=== PATIENT | female | born 1970 | race Caucasian/White ===

== ENCOUNTER 2025-05-20 00:25 | Emergency (ER) | payer OTHER, SELFPAY ==
--- OUTSIDE RECORDS SUMMARY | 2025-05-19 10:15 | XMS_ITS | Encounter Summary ---
Author Organization [facility] Address [address] [place] [address] Care Team Providers Care Account Associate Name Role Phone Nazario Katz DO Primary Care Provider [phone] Nazario Katz DO Unavailable [phone] Reason for Visit * ReasonCommentsAbdominal Pain Encounter Details DateTypeDepartmentCare Team (Latest Contact Info)Jnplnstphvq00/03/2025 10:15 AM ESTOffice Visit [facility] [place] [facility] [address] [place] [phone] Nazario Katz, DO [address] [place] [address] Constipation, unspecified constipation type (Primary Dx) Social History Tobacco UseTypesPacks/DayYears UsedDateSmoking Tobacco: FormerCigarettesQuit: 06/17/2014Smokeless Tobacco: NeverAlcohol UseStandard Drinks/WeekCommentsYes1 (1 standard drink = 0.6 oz pure alcohol)caffeine 1-2 cups/day; coffee/tea Humiliation, Afraid, Rape, and Kick questionnaireAnswerDate RecordedWithin the last year, have you been afraid of your partner or ex-partner?No07/15/2023Within the last year, have you been humiliated or emotionally abused in other ways by your partner or ex-partner?No07/15/2023Within the last year, have you been kicked, hit, slapped, or otherwise physically hurt by your partner or ex-partner?No07/15/2023Within the last year, have you been raped or forced to have any kind of sexual activity by your partner or ex-partner?No07/15/2023 Social Connection and Isolation PanelAnswerDate RecordedIn a typical week, how many times do you talk on the phone with family, friends, or neighbors?More than three times a week07/15/2023How often do you get together with friends or relatives?Once a week07/15/2023How often do you attend anglican or protestant services?1 to 4 times per year07/15/2023o you belong to any clubs or organizations such as anglican groups, unions, fraternal or athletic groups, or school groups?Yes07/15/2023How often do you attend meetings of the clubs or organizations you belong to?1 to 4 times per year07/15/2023re you , , , , never , or living with a partner? 07/15/2023UDIT-CAnswerDate RecordedQ1: How often do you have a drink containing alcohol?Monthly or less10/06/2024Q2: How many drinks containing alcohol do you have on a typical day when you are drinking?1 or Q3: How often do you have six or more drinks on one occasion?Never10/06/2024Overall Financial Resource Strain (CARDIA)AnswerDate RecordedHow hard is it for you to pay for the very basics like food, housing, medical care, and heating?Not hard at all 07/15/2023HQ-2AnswerDate RecordedPatient Health Questionnaire-2 Score0 05/19/2025[facility] [place] of Occupational Health - Occupational Stress QuestionnaireAnswerDate RecordedDo you feel stress - tense, restless, nervous, or anxious, or unable to sleep at night because yourmind is troubled all the time - these days?Only a ehjjbg2707/15/2023Exercise Vital SignAnswerDate Recorded On average, how many days per week do you engage in moderate to strenuous exercise (like a brisk walk)?1 day07/15/2023On average, how many minutes do you engage in exercise at this level?30 min07/15/2023Hunger Vital SignAnswerDate RecordedWithin the past 12 months, you worried that your food would run out before you got the money to buymore.Never true07/15/2023Within the past 12 months, the food you bought just didn't last and you didn't have money to get more.Never true07/15/2023RAPARE - TransportationAnswerDate RecordedIn the past 12 months, has lack of transportation kept you from medical appointments or from getting medications?No07/15/2023In the past 12 months, has lack of transportation kept you from meetings, work, or from getting things needed for daily living?No07/15/2023Housing Stability Vital SignAnswerDate RecordedIn the last 12 months, was there a time when you were not able to pay the mortgage or rent on time?No07/15/2023In the last 12 months, how many places have you lived?1 07/15/2023In the last 12 months, was there a time when you did not have a steady place to sleep or slept in [facility] (including now)?No07/15/2023Comments NoSex and Gender InformationValueDate RecordedSex Assigned at BirthNot on file Legal PknOqqfou55/15/2023 6:58 PM EDTGender IdentityNot on fileSexual OrientationNot on filedocumented as of this encounter Last Filed Vital Signs Vital SignReadingTime TakenCommentsBlood Dgeyxmev707/7005/19/2025 10:53 AM EST Godod120805/19/2025 10:53 AM YTQVmfcdyzgzrg99.6 ??C (97.9 ??F)05/19/2025 10:53 AM ESTRespiratory Rate--Oxygen Cjquahomuy99%05/19/2025 10:53 AM ESTInhaled Oxygen Concentration--Dtdfmh343 kg (243 lb 3.2 oz)05/19/2025 10:53 AM PLUScvnyo934.6 cm (5' 4 )05/19/2025 10:53 AM ESTBody Mass Index41.7505/19/2025 10:53 AM EST documented in this encounter Functional Status * Over the past 2 weeks, how often have you been bothered by any of the following problems?QuestionAnswerDate of AssessmentAuthorLittle interest or pleasure in doing thingsNot at all05/19/2025 10:53 AM Lorie Gregorio MA Feeling down, depressed, or hopelessNot at all05/19/2025 10:53 AM Lorie Gregorio MAPatient Health Questionnaire-2 Izfdg55907/20/2024 10:53 AM Lorie Gregorio MA documented as of this encounter Plan of Treatment DateTypeDepartmentCare Team (Latest Contact Info)Fudltmckkic71/24/2026 11:30 AM EDTOffice Visit [facility] [place] [facility] [address] [place] [phone] Anjel Patterson DO [address] [place] [address] documented as of this encounter Visit Diagnoses Diagnosis Constipation, unspecified constipation type- Primary documented in this encounter Care Teams Team MemberRelationshipSpecialtyStart DateEnd Date Nazario Katz DO [address] [place] [address] PCP - GeneralFamily Medicine10/23/22 Nazario Katz DO [address] [place] [address] PCP - Medical [place] [employer]06/17/1611documented as of this encounter
[2025-05-20 00:30] VITALS: BP 122/74; PULSE 78; TEMP 36.7; O2SAT 96; BMI 39.5
--- NOTE | 2025-05-20 00:56 | XR_ITS ---
The [address] [address] Patient Name: BASIL SANCHEZ MRN: [id number] date: 1970 Sex: F Assigned Patient Location: ER Current Patient Location: Accession/Order Number: [id number] Exam Date: 05/20/2025 01:05 Report Date: 05/20/2025 08:33 At the request of: KEEGAN TORRES MD Procedure: XR acute abdomen series ACUTE ABDOMEN SERIES WITH PA CHEST: CLINICAL HISTORY: upper abd pain COMPARISON: None The chest film shows shallow inspiration with possible minimal basilar atelectasis. There is no pneumothorax or sizable pleural effusion. The heart is normal size. Supine and upright views of the abdomen and pelvis demonstrate air and stool within the colon with mild gaseous distention, greatest at the ascending segment. There is some small bowel air at the left abdomen, without disproportionate distention. There is no free air or significant air-fluid levels. No soft tissue masses or abnormal calcifications are seen. There is subtle levoscoliotic curvature and endplate spurring. There are clips from prior cholecystectomy. XR/XR acute abdomen series IMPRESSION: NONSPECIFIC BOWEL GAS PATTERN WITH COLONIC DISTENTION Impression dictated by: Rohini Mccrary M.D. 05/20/2025 8:33 AM Dictation Location: [place] [address] Electronically authenticated by: [id number] Y Date: 05/20/2025 08:33
--- NOTE | 2025-05-20 01:04 | ED_ITS ---
HPI - Abdominal Pain General Chief Complaint: Abdominal Pain Stated Complaint: Abdominal pain, constipation, cold sweats Time Seen by Provider: 05/20/25 00:41 Source: patient Mode of arrival: walk-in History of Present Illness HPI narrative: This 54-year-old female presents for evaluation of upper abdominal pain and constipation. She states she has not had a bowel movement for the past 3 to 4 days. She has not passed any gas since this morning. She was seen by her family physician and was given a prescription for lactulose. She went home and took some lactulose and drink water but she states that caused more pain in her upper abdomen. She is nauseated but has not vomited. She has not had a fever. She is not having any rectal pain or pressure or lower abdominal pain or pressure. She states her pain and distention is in her upper abdomen causing her to not be able to take a deep breath. She has had her gallbladder removed in the past. She is currently weaning herself off of Adipex but is not on any GLP medications. She does not have a history of diabetes. She denies any urinary symptoms or back pain. 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 Related Data Allergies Allergy/AdvReac Type Severity Reaction Status Date / Time No Known Drug Allergies Allergy Verified 05/20/25 00:30 Review of Systems ROS Status of ROS 10 or more systems reviewed and unremark able except as noted in history and below PFSH PFSH Social History Little interest or pleasure in doing things: not at all Feeling down, depressed, or hopeless: not at all Exam Narrative Exam Narrative: Vital signs and Nursing Notes reviewed: Patient is afebrile with normal pulse, normal blood pressure, she is not hypoxic with pulse ox 96% on room air General: Awake, alert, oriented, nontoxic but uncomfortable appearing overweight female, she is rubbing her upper abdomen, no respiratory distress-appears unable to get comfortable on the bed and then pacing around the room HEENT: Normocephalic atraumatic, mucous membranes are moist and pink, eyes are clear, normal conjunctiva, vision is grossly intact, posterior pharynx is normal in appearance. Neck: Supple, no meningeal signs, no anterior or posterior cervical lymphadenopathy Chest: Lungs are clear to auscultation with good air entry, there is no wheezing rhonchi or rales appreciated no accessory muscle use, patient is speaking in c omplete sentences-no chest wall tenderness to palpation CVS: Regular rate and rhythm S1-S2, no murmurs rubs or gallops, pulses are brisk and equal bilaterally ABD: Obese, soft, epigastric, right upper quadrant and left upper quadrant abdominal tenderness, no voluntary guarding appreciated, there is no lower abdominal tenderness Extremities: Moving all extremities, no lower extremity tenderness or swelling noted, negative Homans' sign, pulses are brisk and equal bilaterally Skin: Normal in appearance without rash,pallor, petechiae or purpura Neuro: No focal deficits Constitutional Vital Signs, click to edit/add: Last Vital Signs Temp 98.1 F 05/20/25 00:30 Pulse 98 H 05/20/25 04:59 Resp 20 05/20/25 04:59 BP 126/84 05/20/25 04:59 Pulse Ox 97 05/20/25 04:59 O2 Del Method Room Air 05/20/25 04:59 Course Vital Signs Vital signs: Vital Signs Temperature 98.1 F 05/20/25 00:30 Pulse Rate 78 05/20/25 00:30 Respiratory Rate 20 05/20/25 00:30 Blood Pressure 122/74 05/20/25 00:30 Pulse Oximetry 96 05/20/25 00:30 Oxygen Delivery Method Room Air 05/20/25 00:30 Temperature 98.1 F 05/20/25 00:30 Pulse Rate 98 H 05/20/25 04:59 Respiratory Rate 20 05/20/25 04:59 Blood Pressure 126/84 05/20/25 04:59 Pulse Oximetry 97 05/20/25 04:59 Oxygen Delivery Method Room Air 05/20/25 04:59 MDM - Abdominal Pain MDM Narrative Medical decision making narrative: This 54-year-old female presents for evaluation of upper abdominal pain with mild nausea and constipation for the past several days. She was seen by her family physician earlier and given lactulose which she took followed by some water and had increased pain. She is not able to get comfortable. She has not had any flatus since earlier in the day. She explained to me that due to the distention in her upper abdomen she could not take a deep breath prompting an EKG and cardiac workup as well as evaluation for her constipation and abdominal pain. EKG is a sinus rhythm at 93 bpm with a normal axis. An IV was placed and she was initially medicated with IV fluids, Zofran and Toradol. On reevaluation she was still pacing about the room and states she was too uncomfortable to lie down. She was then given 1 mg of IV Dilaudid. Routine labs are reviewed. She has an elevated white count at 15 with a stable hemoglobin. Electrolytes are normal with a potassium of 3.4. Liver function test and lipase are normal. Her troponin is normal. Her D-dimer was markedly elevated at 9.3. CT scan of the chest abdomen pelvis was ordered then to rule out pulmonary embolism/aortic emergency, bowel obstruction or other etiologies causing her constipation and abdominal pain with elevated D-dimer. She was reevaluated several times after the CT scan and remains comfortable. CT scan shows marked wall thickening within the sigmoid colon with an area partially obscured due to the wall thickening which may be related to a focal colitis or protects diverticulitis however mass cannot be excluded. Colonoscopy was recommended for further evaluation on a nonemergent basis if not characterized previously. Distended colon with abrupt caliber change within the sigmoid colon consistent with at least partial or early obstruction. CT scan of the chest showed a normal caliber thoracic aorta with no aneurysmal dilatation no dissection with central pulmonary arteries normal in caliber with no pulmonary embolism appreciated. Lungs were clear with no pneumothorax pleural or pericardial effusion. Abdominal aorta was normal in caliber. The celiac superior and inferior mesenteric arteries were patent with no hemodynamically significant stenosis or dissection identified within the aorta. Main renal arteries are patent. Gallbladder surgically absent. Spleen was normal in size and adrenal glands and pancreas were normal. There was no hydronephrosis and no ureteral calculus. Results of these findings were discussed with the patient and her . We discussed options for transfer as we do not have general surgery available at this facility at this time. She was agreeable to [facility]. We contacted the transfer center who discussed the case with general surgery who suggested that the patient be transferred to the emergency department. The case was discussed with the emergency department physician Dr. miramontes and she is accepted for transfer. She was medicated with IV Levaquin and Flagyl for the concern for diverticulitis on the CT scan findings. An NG tube was discussed but since her obstruction is sigmoid colon in nature, this was withheld. Lab Data Attestation: I reviewed the patient's lab results. Labs: Lab Results 05/20/25 Range/Units 01:00 WBC 15.9 H (4.0-11.0) 10^3/uL RBC 5.09 (4.20-5.40) 10^6/uL Hgb 14.5 (12.0-16.0) g/dL Hct 43.0 (36.0-48.0) % MCV 84.5 (81.0-99.0) fL MCH 28.5 (26.7-34.0) pg MCHC 33.7 (29.9-35.2) g/dL RDW 12.6 (11.0-15.0) % Plt Count 363 (150-450) 10^3/uL MPV 9.4 L (9.5-13.5) fL Neut % (Auto) 80.4 H (43.0-75.0) % Lymph % (Auto) 13.4 L (20.5-60.0) % Ralls % (Auto) 5.2 (1.7-12.0) % Eos % (Auto) 0.4 L (0.9-7.0) % Baso % (Auto) 0.2 (0.2-2.0) % Neut # (Auto) 12.8 H (1.4-6.5) 10^3/uL Lymph # (Auto) 2.1 (1.2-3.8) 10^3/uL Ralls # (Auto) 0.8 (0.3-0.8) 10^3/uL Eos # (Auto) 0.1 (0.0-0.7) 10^3/uL Baso # (Auto) 0.0 (0.0-0.1) 10^3/uL Abs Immat Gran (auto) 0.06 H (0.00-0.03) 10^3/uL Imm/Tot Granulo (auto) 0.4 (0.0-0.5) % D-Dimer 9.30 H* (<=0.59) mg/L FEU Sodium 138 (136-145) mmol/L Potassium 3.4 L (3.5-5.1) mmol/L Chloride 103 (98-107) mmol/L Carbon Dioxide 26.4 (21.0-32.0) mmol/L Anion Gap 12.0 BUN 9.0 (7.0-18.0) mg/dL Creatinine 0.89 (0.55-1.02) mg/dL Est GFR ( Amer) >60 (>=60 mL/min/1.73m^2) Est GFR (Non-Af Amer) >60 (>=60 mL/min/1.73m^2) BUN/Creatinine Ratio 10.1 Glucose 145 H (74-106) mg/dL Lactate 0.7 (0.4-2.0) mmol/L Calcium 9.5 (8.5-10.1) mg/dL Total Bilirubin 0.4 (0.2-1.0) mg/dL AST 17 (15-37) U/L ALT 28 (14-59) U/L Alkaline Phosphatase 93 (46-116) U/L Troponin I High Sens 5.3 (4.0-51.3) pg/mL Total Protein 7.6 (6.4-8.2) g/dL Albumin 3.3 L (3.4-5.0) g/dL Globulin 4.3 g/dL Albumin/Globulin Ratio 0.8 Lipase 32.0 (16.0-77.0) U/L ECG Data Attestation: I personally reviewed and interpreted this ECG as follows: (Sinus rhythm at 93 bpm with occasional PVCs, normal axis, nonspecific ST changes, possible left atrial enlargement, no acute ST segment elevation or T wave inversion) Discharge Plan Discharge Chief Complaint: Abdominal Pain Clinical Impression: Abdominal pain, Colonic obstruction Patient Disposition: [facility] Time of Disposition Decision: 04:49 Discharge Location: [facility] Mode of Transportation: EMS
[2025-05-20 01:08] LABS: Hematocrit 43.0 % (36.0-48.0); Hemoglobin 14.5 g/dL (12.0-16.0); Immature Granulocytes Abs Auto 0.06 10^3/uL (0.00-0.03); Immature Granulocytes Pct Auto 0.4 % (0.0-0.5); Lymphocytes Absolute Auto 2.1 10^3/uL (1.2-3.8); Mean Corpuscular HGB Conc 33.7 g/dL (29.9-35.2); Mean Corpuscular Hemoglobin 28.5 pg (26.7-34.0); Mean Corpuscular Volume 84.5 fL (81.0-99.0); Platelet Count 363 10^3/uL (150-450); Red Blood Count 5.09 10^6/uL (4.20-5.40); White Blood Count 15.9 10^3/uL (4.0-11.0)
[2025-05-20] MEDS: 0.9 % SODIUM CHLORIDE 1,000 ML 1000 ML IV (01:14)
[2025-05-20] MEDS: KETOROLAC TROMETHAMINE 30 MG/ML VIAL IVP (01:14)
[2025-05-20 01:25] LABS: Alanine Aminotransferase 28 U/L (14-59); Albumin Globulin Ratio 0.8; Albumin Level 3.3 g/dL (3.4-5.0); Alkaline Phosphatase 93 U/L (46-116); Anion Gap 12.0; Aspartate Amino Transferase 17 U/L (15-37); Blood Urea Nitrogen 9.0 mg/dL (7.0-18.0); Calcium 9.5 mg/dL (8.5-10.1); Carbon Dioxide 26.4 mmol/L (21.0-32.0); Chloride 103 mmol/L (98-107); Estimated GFR (African America >60 (>=60 mL/min/1.73m^2); Estimated GFR (Non-African Ame >60 (>=60 mL/min/1.73m^2); Globulin 4.3 g/dL; Glucose 145 mg/dL (74-106); Lipase 32.0 U/L (16.0-77.0); Potassium 3.4 mmol/L (3.5-5.1); Sodium 138 mmol/L (136-145); Total Protein 7.6 g/dL (6.4-8.2)
--- NOTE | 2025-05-20 01:40 | ECG_ITS ---
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
--- OUTSIDE RECORDS SUMMARY | 2025-05-20 01:41 | XMS_ITS | Clinical Summary ---
Author Organization [facility] [employer] s [employer] Address [id number] [place] [address] Care Team Providers Care Project Mgr Name Role Phone Unavailable Primary Care Provider Unavailabl e Social History Tobacco UseTypesPacks/DayYears UsedDateSmoking Tobacco: Never AssessedChildcare AnswerDate WxhofwsaLgvycyajfYphtxie63/12/2019EmploymentAnswerDate Recorded IbcgzxlqujTvjcriv65/12/2019CommentsUnknownSex and Gender Information ValueDate RecordedSex Assigned at BirthNot on fileLegal HwoSednwc48/06/2015 11:32 AM EDTGender IdentityNot on fileSexual OrientationNot on file Plan of Treatment Not on file Medical Devices Not on file
--- OUTSIDE RECORDS SUMMARY | 2025-05-20 01:41 | XMS_ITS | Clinical Summary ---
Author Organization [facility] Address [address] [place] [address] Care Team Providers Care Route Cdl Driver Name Role Phone Nazario Katz DO Primary Care Provider [phone] Nazario Katz DO Unavailable [phone] Allergies No known active allergies Medications MedicationSigDispense QuantityRefillsLast FilledStart DateEnd DateStatus cinnamon 500 MG capsule as directed OrallyActive ibuprofen 200 MG tablet every 8 (eight) hours.Active Magnesium 300 MG capsule 1,000 mg 1 (one) time each day at the same timeActive omega-3 (fish oil) 1000 MG capsule 1 capsule 1 (one) time each day at the same time.Active Turmeric 400 MG capsule 2 tabletsActive Misc Natural Products (YUMVS BEET ROOT-TART HUANG PO) Take by mouth.Active olmesartan-hydroCHLOROthiazide (BENIcar HCT) 40-12.5 MG tablet Indications:Essential hypertensionTAKE 1 TABLET BY MOUTH IN THE MORNING 30 tablet 4Active Emollient (COLLAGEN EX) Apply topically Collagen peptidesActive phentermine (Adipex-P) 37.5 MG tablet Indications:Weight gainTake 1 tablet (37.5 mg) by mouth in the morning. Take before meals. 90 tablet 5Active rosuvastatin (Crestor) 20 MG tablet Indications:Mixed hyperlipidemiaTake 1 tablet (20 mg) by mouth Daily 30 tablet 5055Active lactulose 20 gram/30 mL oral solution Indications:Constipation, unspecified constipation typeTake 30 mL (20 g) by mouth Daily for 14 days 420 mL 1125Active amoxicillin-clavulanate (Augmentin) 875-125 MG tablet Indications:Abdominal pain, unspecified abdominal locationTake 1 tablet (875 mg) by mouth in the morning and 1 tablet (875 mg) in the evening. Take after meals. Do all this for 7 days. 14 tablet Expired Active Problems ProblemNoted DateDiagnosed DateEssential jfkjpasbqldq95/04/2023Impaired fasting euailia3503/20/2023Mixed uorltlntqczubi58/04/2023Obesity, Class III, BMI 40-49.9 (morbid obesity)03/20/2023 Resolved Problems ProblemNoted DateDiagnosed DateResolved DateAKI (acute kidney injury)08/20/2023 12/15/2024Elevated liver function tests/06/2024Gallstone pancreatitis ([facility]xillary fat pad/ Oavkvursigcfaf07 Encounters DateTypeDepartmentCare YbnrCszuywyglwr95/03/2025 10:15 AM ESTOffice Visit [facility] [address] [place] [phone] Nazario Katz DO Constipation, unspecified constipation type (Primary Dx)05/19/2025amboo flowsheet [facility] [address] [place] [phone] Nazario Katz, 05/19/20254839Dmoyvm61/02/2025Telephone [facility] [address] [place] [phone] Nazario Katz, 04/14/2025Refill [facility] [address] [place] [phone] Nazario Katz, Abdominal pain, unspecified abdominal location (Primary Dx)from Last 3 Months Immunizations ImmunizationAdministration DatesNext DueInfluenza, injectable, quadrivalent, preservative free03/29/2020Tdap08/29/2011 Family History Medical HistoryRelationNameCommentsArrhythmiaFatherJames B CarothersCancerFather Hugo Bush CarothersHeart diseaseFatherJames B CarothersHypertensionFatherJames B CarothersProstate cancerFatherJames B CarothersHeart attackMaternal Grandmother Breast cancerMotherRae Dania CarothersCOPDMotherRae Dania CarothersDiverticulitis MotherRae Dania CarothersHypertensionMotherRae Dania CarothersAlzheimer's disease Paternal GrandmotherRelationNameStatusCommentsFatherJames B CarothersDeceased Maternal GrandmotherMotherRae Dania CarothersDeceasedPaternal GrandmotherSister1 LkcklEby3Ccqho Social History Tobacco UseTypesPacks/DayYears UsedDateSmoking Tobacco: FormerCigarettesQuit: 06/17/2014Smokeless Tobacco: Never Tobacco Cessation:Counseling Given: No Alcohol UseStandard Drinks/WeekCommentsYes1 (1 standard drink = 0.6 oz pure alcohol)caffeine 1-2 cups/day; coffee/teaHumiliation, Afraid, Rape, and Kick questionnaireAnswerDate RecordedWithin the last year, have you been afraid of your partner or ex-partner?No07/15/2023Within the last year, have you been humiliated or emotionally abused in other ways by your partner or ex-partner?No 07/15/2023Within the last year, have you been kicked, hit, slapped, or otherwise physically hurt by your partner or ex-partner?No07/15/2023Within the last year, have you been raped or forced to have any kind of sexual activity by your part ner or ex-partner?No07/15/2023Social Connection and Isolation PanelAnswerDate RecordedIn a typical week, how many times do you talk on the phone with family, friends, or neighbors?More than three times a week07/15/2023How often do you get together with friends or relatives?Once a week07/15/2023How often do you attend episcopalian or quaker services?1 to 4 times per year07/15/2023o you belong to any clubs or organizations such as episcopalian groups, unions, fraternal or athletic francois ups, or school groups?Yes07/15/2023How often do you attend [...] at all 07/15/2023HQ-2AnswerDate RecordedPatient Health Questionnaire-2 Score0 05/19/2025[facility] - Occupational Stress QuestionnaireAnswerDate RecordedDo you feel stress - tense, restless, nervous, or anxious, or unable to sleep at night because yourmind is troubled all the time - these days?Only a gzovia5107/15/2023Exercise Vital SignAnswerDate Recorded On average, how many [...] steady place to sleep or slept in ashelter (including now)?No07/15/2023Comments NoSex and Gender InformationValueDate RecordedSex Assigned at BirthNot on file Legal RyuRkfnvu60/15/2023 6:58 PM EDTGender IdentityNot on fileSexual OrientationNot on file Last Filed Vital Signs Vital SignReadingTime TakenCommentsBlood Ibzkoler445/7005/19/2025 10:53 AM EST Nkdav358405/19/2025 10:53 AM MWONqzikvkblyb73.6 ??C (97.9 ??F)05/19/2025 10:53 AM ESTRespiratory Rate--Oxygen Boopsfdcno84%05/19/2025 10:53 AM ESTInhaled Oxygen Concentration--Heqicd855 kg (243 lb 3.2 oz)05/19/2025 10:53 AM SEWOpekyq192.6 cm (5' 4 )05/19/2025 10:53 AM ESTBody Mass Index41.7505/19/2025 10:53 AM EST Plan of Treatment DateTypeDepartmentCare Team (Latest Contact Info)Nhlqdroivho98/24/2026 11:30 AM EDTOffice Visit [facility] [address] [place] [address] Anjel Patterson DO [address] [place] [address] Health MaintenanceDue DateLast DoneCommentsCT Lmdfzfccvizd1970Colonoscopy 1970FIT1970FOBT1970 7237Bofgrxbmnyeub1970Pap Smear1991 COVID-19 Vaccine ( season), 09/09/2020, 08/10/2020Influenza Vaccine (#1)Mammogram11/23/2025 11/23/2024, 06/28/2023, 05/28/2022, Additional history existsColorectal Cancer Wuezsdkle11/15/2028FIT-DNA, 11/24/2020, 11/24/2020ervical Cancer Ylyogtfpz86/22/2030HPV/Fjloox47, 04/12/2021neumococcal Vaccine: Pediatrics (0 to 5 Years) and At-Risk Patients (6 to 64 Years)Aged Out No longer eligible based on patient's age to complete this topic Procedures Procedure NamePriorityDate/TimeAssociated DiagnosisCommentsBI MAMMOGRAM SCREENING TOMOSYNTHESIS ATDURYIYJ26/09/2025 10:33 AM EDT IGP, APT HPV,RFX 16/18,06Pjqxpyr68/22/2025 12:00 AM EDT Encounter for Papanicolaou smear of cervix LAB COLOGUARD?? COLON CANCER ZALQINAkpbola08/15/2025 6:00 AM EDT Colon cancer screening from Last 3 Months or Most Recently Relevant to Health Maintenance Results * Bilateral screening mammogram with tomosynthesis (11/23/2024 10:33 AM EDT) Anatomical RegionLateralityModalityBreastBilateralMammographySpecimen (Source) Anatomical Location / LateralityCollection Method / VolumeCollection Time Received Time11/23/2024 10:33 AM EDT Impressions 11/23/2024 10:37 AM EDT No mammographic evidence of malignancy. Routine follow-up recommended in one year. ?? RESULT CODE: 2 ? Benign Findings(s) ? DENSITY CODE: 1 (<25% glandular) The breasts are almost entirely fatty. ? FOLLOW UP: 1YR ? THE FALSE-NEGATIVE RATE OF MAMMOGRAPHY IS APPROXIMATELY 10%. ? IMAGING OF A PALPABLE ABNORMALITY MUST BE BASED ON CLINICAL GROUNDS. ? PATIENT WAS ENTERED INTO A REMINDER SYSTEM WITH A TARGET DUE DATE FOR THE NEXT MAMMOGRAM. ? Impression dictated by: Ruben Booth M.D. ??11/23/2024 10:35 AM ? Dictation Location: DWS01 ? Dictated By: ?Ruben Booth DO ? 11/23/24 1033 ? Signed By: <Electronically signed by Ruben Booth, DO in OV> ? 11/23/24 1035 Narrative 11/23/2024 10:37 AM T [facility] ?[address] ?[place] [address] ?? [phone] ? Mammography Report ? Signed ? Patient: Widman,Lidia L ?MR#: [id number] ?? [id number] ? : 1970 ?Acct:[id number] ? Age/Sex: 54 / F ?Adm Date: 06/09/25 ? Loc: [place] ?Room: ?Type: DEP CLI ?? Attending Dr: Anjel Patterson DO ? Ordering Provider: Anjel Patterson,DO ? Date of Service: 11/23/24 ? Procedure(s): MM screening mammo BI w/CAD ?? Accession Number(s): ([id number]) MM/MM screening mammo BI w/CAD: SCREENING ? Copies to: Nazario Katz, DO ?? Anjel Patterson,DO ? BILATERAL ??Screening ??Full Field digital mammogram with 3-D imaging. ? Full field digital CC and MLO imaging performed. ??CAD utilized. ? COMPARISON: 06/27/2023 ? HISTORY: Annual screening ? BREAST COMPOSITION: The breast is almost entirely fatty. ? BREAST CALCIFICATIONS: Benign calcifications present. ? VASCULAR CALCIFICATIONS: None ? ARCHITECTURAL DISTORTION: None ? BREAST NODULE: None ? AXILLARY LYMPH NODES: Normal ? POSTSURGICAL CHANGES: None ? MM/MM screening mammo BI w/CAD ?? Procedure Note Radiology, Radiologist, - [facility]24[facility]20[facility] [address] [id number] Mammography Report Signed Patient: Lidia Acevedo LMR#: [id number] : 1970Acct:[id number] Age/Sex: 54 / FAdm Date: 11/23/24 Loc: [place] Room:Type: [facility] Attending Dr: Anjel Patterson DO Ordering Provider: Anjel Patterson DO Date of Service: 11/23/24 Procedure(s): MM screening mammo BI w/CAD Accession Number(s): ([id number]) MM/MM screening mammo BI w/CAD:SCREENING Copies to: Nazario Katz, DO Anjel Patterson DO BILATERAL Screening Full Field digital mammogram with 3-D imaging. Full field digital CC and MLO imaging performed. CAD utilized. COMPARISON: 06/27/2023 HISTORY: Annual screening BREAST COMPOSITION: The breast is almost entirely fatty. BREAST CALCIFICATIONS: Benign calcifications present. VASCULAR CALCIFICATIONS: None ARCHITECTURAL DISTORTION: None BREAST NODULE: None AXILLARY LYMPH NODES: Normal POSTSURGICAL CHANGES: None MM/MM screening mammo BI w/CAD IMPRESSION: No mammographic evidence of malignancy. Routine follow-up recommended inone year. RESULT CODE: 2 Benign Findings(s) DENSITY CODE: 1 (<25% glandular) The breasts are almost entirely fatty. FOLLOW UP: 1YR THE FALSE-NEGATIVE RATE OF MAMMOGRAPHY IS APPROXIMATELY 10%. IMAGING OF A PALPABLE ABNORMALITY MUST BE BASED ON CLINICAL GROUNDS. PATIENT WAS ENTERED INTO A REMINDER SYSTEM WITH A TARGET DUE DATE FOR THENEXT MAMMOGRAM. Impression dictated by: Ruben Booth M.D. 11/23/2024 10:35 AM Dictation Location: [facility] Dictated By: Ruben Booth DO 11/23/24 1033 Signed By: <Electronically signed by Ruben Booth DO in OV> 11/23/24 1035 Authorizing ProviderResult TypeResult StatusWillwalker Patterson [facility] BI PROCEDURES Edited Result - Final * IGP, APT HPV,RFX 16/18,45 (10/06/2024 12:00 AM EDT)ComponentValueRef RangeTest MethodAnalysis TimePerformed AtPathologist SignatureDiagnosis:CommentLABC[facility]P Comment:NEGATIVE FOR INTRAEPITHELIAL LESION OR MALIGNANCY.Specimen Adequacy: CommentLABCORPComment: Satisfactory for evaluation. ??Endocervical and/or squamous metaplastic cells (endocervical component) are present. Clinician Provided ICD10:CommentLABCORPComment:Z12.4Performed By:CommentLABC[facility] Comment:Edwin Sanz, Hogshead Stripper (ASCP)Cyto Comments.LABCORPNote:Comment[facility] Comment: The Pap smear is a screening test designed to aid in the detection of premalignant and malignant conditions of the uterine cervix. ??It is not a diagnostic procedure and should not be used as the sole means of detecting cervical cancer. ??Both false-positive and false-negative reports do occur. Test Methodology:CommentLABCORPComment: This liquid based ThinPrep(R) pap test was screened with the use of an image guided system. HPV AptimaNegativeNegativeLABCORPComment: This nucleic acid amplification test detects fourteen high-risk HPV types (16,18,31,33,35,39,45,51,52,56,58,59,66,68) without differentiation. Specimen (Source)Anatomical Location / LateralityCollection Method / Volume Collection TimeReceived HbunRpqf75/ Narrative [facility] - 10/09/2024 3:07 PM EDT Performed at: 01 - [address] ??[id number] Import Export Agent: Kirsty Sorto MD, Phone: ??[phone] Performed at: ??02 - [facility] ??[id number] Import Export Agent: Kirsty Sorto MD, Phone: ??[phone] Specimen Comment: No. of containers..01 ThinPrep Vial Authorizing ProviderResult TypeResult StatusWilliagerardo MonzonSumma Health Akron Campus BLOOD ORDERABLESFinal ResultPerforming OrganizationAddressCity/State/ZIP CodePhone Number [facility] * Cologuard?? colon cancer screening (09/29/2024 6:00 AM EDT)ComponentValueRef RangeTest MethodAnalysis TimePerformed AtPathologist SignatureNONINV COLON CA DNA+OCC BLD SCRN STL-TJPWmqpabntQlcxzdvs11/22/2025 9:36 AM [facility] (CLIA #:[id number])Comment: The Cologuard (TM) test was performed on this specimen. NEGATIVE TEST RESULT. A negative Cologuard result indicates a low likelihood that a colorectal cancer (CRC) or advanced adenoma (adenomatous polyps with more advanced pre-malignant features) is present. The chance that a person with a negative Cologuard test has a colorectal cancer is less than 1 in 1500 (negative predictive value >99.9%) or has an advanced adenoma is less than 5.3% (negative predictive value 94.7%). These data are based on a prospective cross-sectional study of 10,000 individuals at average risk for colorectal cancer who were screened with both Cologuard and colonoscopy. (Denice Pulido et al, N Engl J Med 2014;370(14):4045-7002) The normal value (reference range) for this assay is negative. COLOGUARD RE-SCREENING RECOMMENDATION: Periodic colorectal cancer screening is an important part ofpreventive healthcare for asymptomatic individuals at average risk for colorectal cancer. Followinga negative Cologuard result, the [place] [employer] Society and U.S. Multi-Society Task Force screening guidelines recommend a Cologuard re-screening interval of 3 years. References: [place] [employer] Guideline for Colorectal Cancer Screening: https://www.cancer.or g/cancer/epjga-nnqkto-ctotzi/jkxgprmnc-spwppzeag-oprcglz/acs-recommendations.htm aidan.; Nicolas CARLSON, Rob LEWIS, Lana ScottK, Colorectal Cancer Screening: Recommendations for Physicians and Patients from the U.S. Multi-Society Task Force on Colorectal Cancer Screening , Am J Gastroenterology 2017; 112:2272-8922. TEST DESCRIPTION: Composite algorithmic analysis of stool DNA-biomarkers with hemoglobin immunoassay. ?? Quantitative values of individual biomarkers are not reportable and are not associated with individual biomarker result reference ranges. Cologuard is intended for colorectal cancer screening ofadults of either sex, 45 years or older, who are at average-risk for colorectal cancer (CRC). Cologuard has been approved for use by the U.S. FDA. The performance of Cologuard was established in a cross sectional study of average-risk adults aged 50-84. Cologuard performance in patients ages 45 to 49 years was estimated by sub-group analysis of near-age groups. Colonoscopies performed for a positive result may find as the most clinically significant lesion: colorectal cancer [4.0%], advanced adenoma (including sessile serrated polyps greater than or equal to 1cm diameter) [20%] or non- advanced adenoma [31%]; or no colorectal neoplasia [45%]. These estimates are derived from a prospective cross-sectional screening study of 10,000 individuals at average risk for colorectal cancer who were screened with both Cologuard and colonoscopy. (Denice Perez al, N Engl J Med 2014;370(14):3717-6735.) Cologuard may produce a false negative or false positive result (no colorectal cancer or precancerous polyp present at colonoscopy follow up). A negative Cologuard test result does not guarantee the absence of CRC or advanced adenoma (pre-cancer). The current Cologuard screening interval is every 3 years. ([place] [employer] and U.S. Multi-Society Task Force). Cologuard performance data in a 10,000 patient pivotal study using colonoscopy as the reference method can be accessed at the following location: www.[employer].com/results. Additional description of the Cologuard test process, warnings and precautions can be found at www.cologuard.com. Specimen (Source)Anatomical Location / LateralityCollection Method / Volume Collection TimeReceived TimeStool specimen (specimen)09/29/2024 6:00 AM EDT 09/30/2024 12:56 PM EDT Narrative Authorizing ProviderResult TypeResult StatusMatthedavid Katz [facility] ORDERABLESFinal ResultPerforming OrganizationAddressCity/State/ZIP CodePhone Number .[employer] (CLIA #:[id number]) [address] [address], [employer] (CLIA #:[id number]) [address] [address] from Last 3 Months or Most Recently Relevant to Health Maintenance Insurance Care Teams Team MemberRelationshipSpecialtyStart DateEnd Date Nazario Katz DO [address] [facility] [address] [place] [address] PCP - GeneralFamily Medicine10/23/22 Nazario Katz DO [address] [facility] [address] [place] [address] PCP - Medical [place] [employer]06/17/1611
--- OUTSIDE RECORDS SUMMARY | 2025-05-20 01:41 | XMS_ITS | Encounter Summary ---
Author Organization [facility] Address [address] [place] [address] Care Team Providers Care Seafood Fisherman Name Role Phone Nazario Katz DO Primary Care Provider +- [phone] Nazario Katz DO Unavailable [phone] Encounter Details DateTypeDepartmentCare Team (Latest Contact Info)Tuxfgjzjblx64/02/2025Telephone [facility] [address] [place] [phone] Nazario Katz, DO [address] [place] [address] Social History Tobacco UseTypesPacks/DayYears UsedDateSmoking Tobacco: FormerCigarettesQuit: [...] relatives?Once a week07/15/2023How often do you attend hindu or rastafari services?1 to 4 times per year07/15/2023o you belong to any clubs or organizations such as hindu groups, unions, fraTheySay or athletic groups, or school groups?Yes07/15/2023How often [...] at all 07/15/2023HQ-2AnswerDate RecordedPatient Health Questionnaire-2 Score0 05/19/2025Finmount[facility] [place] of Occupational Health - Occupational Stress QuestionnaireAnswerDate RecordedDo you feel stress - tense, restless, nervous, or anxious, or unable to sleep at night because yourmind is troubled all the time - these days?Only a toyiyu3307/15/2023Exercise Vital SignAnswerDate Recorded On average, how many [...] RecordedSex Assigned at BirthNot on file Legal LgxOojtsm97/15/2023 6:58 PM EDTGender IdentityNot on fileSexual OrientationNot on filedocumented as of this encounter Miscellaneous Notes * Telephone Encounter - Marlee Damon - 05/18/2025 1:03 PM EST Spoke with the Pt and scheduled appt for 05/19 @ 10:15. * Telephone Encounter - Marlee Damon - 05/18/2025 11:38 AM EST Pt called wanting a call back at [phone] to discuss either new or just started digestion issues, she is having bloating, abdominal pain, she is still urination and she is not dehydrated. documented in this encounter Plan of Treatment DateTypeDepartmentCare Team (Latest Contact Info)Xjfdqkqeuhv68/24/2026 11:30 AM EDTOffice Visit [facility] [address] [place] [address] Anjel Patterson, [address] [place] [address] documented as of this encounter Visit Diagnoses Not on filedocumented in this encounter Care Teams Team MemberRelationshipSpecialtyStart DateEnd Date Nazario Katz DO [address] [place] [address] PCP - GeneralFamily Medicine10/23/22 Nazario Katz DO [address] [place] [address] PCP - Medical [place] [employer]06/17/1611documented as of this encounter
--- OUTSIDE RECORDS SUMMARY | 2025-05-20 01:41 | XMS_ITS | Encounter Summary ---
Author Organization [facility] Address [address] [place] [address] Care Team Providers Care Engineering Department Chair Name Role Phone Nazario Katz DO Primary Care Provider [phone] Nazario Katz DO Unavailable [phone] Encounter Details DateTypeDepartmentCare Team (Latest Contact Info)Walmyfnmbdx92/03/2025Travel Social History Tobacco UseTypesPacks/DayYears UsedDateSmoking Tobacco: FormerCigarettesQuit: [...] relatives?Once a week07/15/2023How often do you attend uatsdin or scientology services?1 to 4 times per year07/15/2023o you belong to any clubs or organizations such as uatsdin groups, unions, fraternal or athletic groups, or [...] at all 07/15/2023HQ-2AnswerDate RecordedPatient Health Questionnaire-2 Score0 05/19/2025Finbrigham [facility] [place] of Occupational Health - Occupational Stress QuestionnaireAnswerDate RecordedDo you feel stress - tense, restless, nervous, or anxious, or unable to sleep at night because yourmind is troubled all the time - these days?Only a kapyrq0507/15/2023Exercise Vital SignAnswerDate Recorded On average, how many [...] steady place to sleep or slept in [facility] (including now)?No07/15/2023Comments NoSex and Gender InformationValueDate RecordedSex Assigned at BirthNot on file Legal RjyUnbjhx69/15/2023 6:58 PM EDTGender IdentityNot on fileSexual OrientationNot on filedocumented as of this encounter Functional Status * Over the past 2 weeks, how often have you been bothered by any of the following problems?QuestionAnswerDate of AssessmentAuthorLittle interest or pleasure in doing thingsNot at all05/19/2025 10:53 AM Lorie Gregorio MA Feeling down, depressed, or hopelessNot at all05/19/2025 10:53 AM Lorie Gregorio MAPatient Health Questionnaire-2 Cisiq47707/20/2024 10:53 AM Lorie Gregorio MA documented as of this encounter Plan of Treatment DateTypeDepartmentCare Team (Latest Contact Info)Xtnymogzose91/24/2026 11:30 AM EDTOffice Visit [facility] [place] [facility] [address] [place] [address] Anjel Patterson DO [address] [place] [address] documented as of this encounter Visit Diagnoses Not on filedocumented in this encounter Care Teams Team MemberRelationshipSpecialtyStart DateEnd Date Nazario Katz DO [address] [place] [address] PCP - GeneralFaksly Medicine10/23/22 Nazario Katz DO [address] [place] [address] PCP - Medical [facility]06/17/1611documented as of this encounter
--- OUTSIDE RECORDS SUMMARY | 2025-05-20 01:41 | XMS_ITS | Encounter Summary ---
Author Organization [facility] Address [address] [place] [address] Care Team Providers Care Supervisor Color Making Name Role Phone Nazario Katz DO Primary Care Provider +- [phone] Nazario Katz DO Unavailable [phone] Encounter Details DateTypeDepartmentCare Team (Latest Contact Info)Elbkavpkjgy15/03/2025Bamboo flowsheet [facility] [place] [facility] [address] [facility] [address] [place] [id number] Nazario Katz, DO [address] [facility] [address] [place] [address] Social History Tobacco UseTypesPacks/DayYears UsedDateSmoking Tobacco: FormerCigarettesQuit: [...] relatives?Once a week07/15/2023How often do you attend druze or anglican services?1 to 4 times per year07/15/2023o you belong to any clubs or organizations such as druze groups, unions, fraternal or athletic groups, or [...] at all 07/15/2023HQ-2AnswerDate RecordedPatient Health Questionnaire-2 Score0 05/19/2025[facility] - Occupational Stress QuestionnaireAnswerDate RecordedDo you feel stress - tense, restless, nervous, or anxious, or unable to sleep at night because yourmind is troubled all the time - these days?Only a mgetho8707/15/2023Exercise Vital SignAnswerDate Recorded On average, how many [...] RecordedSex Assigned at BirthNot on file Legal LvwCqqdas25/15/2023 6:58 PM EDTGender IdentityNot on fileSexual OrientationNot on filedocumented as of this encounter Plan of Treatment DateTypeDepartmentCare Team (Latest Contact Info)Bxumgmkfdif38/24/2026 11:30 AM EDTOffice Visit BHARATH NAVARRO [address] [place] [id number] Anjel Patterson DO [address] [place] [address] documented as of this encounter Visit Diagnoses Not on filedocumented in this encounter Care Teams Team MemberRelationshipSpecialtyStart DateEnd Date Nazario Katz DO [address] [place] [address] PCP - GeneralFamily Medicine10/23/22 Nazario Katz DO [address] [place] [address] PCP - Medical [place] [employer]06/17/1611documented as of this encounter
[2025-05-20 01:44] VITALS: BP 110/57
[2025-05-20] MEDS: HYDROMORPHONE HCL 1 MG/ML CARTRIDGE IV ×2 (01:45→06:01)
[2025-05-20 01:47] VITALS: PULSE 98
[2025-05-20 01:53] VITALS: BP 110/57; PULSE 88; O2SAT 96
[2025-05-20 02:04] VITALS: BP 130/67; O2SAT 94
[2025-05-20 04:29] LABS: Lactate/Lactic Acid 0.7 mmol/L (0.4-2.0)
[2025-05-20] MEDS: METRONIDAZOLE/SODIUM CHLORIDE 500 MG/100 ML PREMIX 100 MG IV (04:53)
[2025-05-20 04:59] VITALS: BP 126/84; PULSE 98; O2SAT 97
== END 2025-05-20 06:04 | disposition short-term general hospital (02) ==
PROVIDERS: Emergency Provider Emergency Medicine; PCP Family Medicine
DX: K56.609 Unspecified intestinal obstruction, unspecified as to partial versus complete obstruction (principal); R10.10 Upper abdominal pain, unspecified; Z90.49 Acquired absence of other specified parts of digestive tract
CPT/HCPCS: 36415; 71275; 74022; 74174; 80053; 83605; 83690; 84484; 85025; 85378; 93005; 96365; 96375; 96376; 99285; J1171; J1836; J1885; J2405; Q9967